=== PATIENT | male | born 1965 ===

== ENCOUNTER 2016-06-07 09:38 | Emergency (ER) | payer BC ==
--- NOTE | 2016-06-07 10:37 | UC ---
Throat Pain/Nasal Azam HPI - HPI Summary HPI Summary: FIVE DAYS OF PRODUCTIVE COUGH, CHILLS, RUNNY NOSE. NO KNOWN FEVER. SORE THROAT FROM COUGHING. - History of Current Complaint Chief Complaint: UCRespiratory Stated Complaint: COUGH Time Seen by Provider: 06/07/16 10:04 Hx Obtained From: Patient, Family/Restoration Ecologist Onset/Duration: Gradual Onset, Lasting Weeks, Still Present Severity: Moderate Cough: Productive Associated Signs & Symptoms: Positive: Hoarseness, Nasal Discharge - Epiglottits Risk Factors Epiglottis Risk Factors: Negative - Allergies/Home Medications Allergies/Adverse Reactions: Allergies Allergy/AdvReac Type Severity Reaction Status Date / Time No Known Allergies Allergy Verified 06/07/16 09:58 Home Medications: Home Medications [id number] W/ APAP [Delsym Cough + Cold D... 0-23-720-325 mg/10Ml] [History Confirmed 06/07/16] [id number] W/ APAP [Tylenol Cold & Flu Severe 8-82-148-325 mg] [History] PMH/Surg Hx/FS Hx/Imm Hx Previously Healthy: Yes Endocrine History Of: Denies: Diabetes, Thyroid Disease Cardiovascular History Of: Denies: Cardiac Disorders, Hypertension Respiratory History Of: Denies: COPD, Asthma GI/ History Of: Denies: Ulcer - Surgical History Surgical History: Yes Surgery Procedure, Year, and Place: knee surgery - Family History Known Family History: Negative: Respiratory Disease - Social History Occupation: Employed Full-time Lives: With Family Alcohol Use: Occasionally Substance Use Type: None Smoking Status (MU): Never Smoked Tobacco Household Exposure Type: Cigarettes Cessation Counseling: Patient Advised to Stop Review of Systems Constitutional: Chills, Fatigue Skin: Negative Eyes: Negative ENT: Sore Throat, Nasal Discharge Respiratory: Cough Cardiovascular: Negative Gastrointestinal: Negative Genitourinary: Negative Motor: Negative Neurovascular: Negative Musculoskeletal: Negative Neurological: Negative Psychological: Negative All Other Systems Reviewed And Are Negative: Yes Physical Exam Triage Information Reviewed: Yes Appearance: Well-Appearing, No Pain Distress, Well-Nourished Vital Signs: Initial Vital Signs Temp 98.3 F 06/07/16 09:50 Pulse 73 06/07/16 09:50 Resp 16 06/07/16 09:50 BP 117/76 06/07/16 09:50 Pulse Ox 98 06/07/16 09:50 Vital Signs Reviewed: Yes Eye Exam: Normal ENT: Positive: Hearing grossly normal, Nasal congestion, Nasal drainage, TM bulging, TM dull Dental Exam: Normal Neck exam: Normal Neck: Positive: Supple, Nontender, No Lymphadenopathy Respiratory Exam: Other - COUGH Respiratory: Positive: Chest non-tender, Lungs clear, Normal breath sounds, No respiratory distress, No accessory muscle use Cardiovascular Exam: Normal Cardiovascular: Positive: RRR, No Murmur, Pulses Normal Abdominal Exam: Normal Abdomen Description: Positive: Nontender, No Organomegaly Musculoskeletal Exam: Normal Musculoskeletal: Positive: Strength Intact, ROM Intact Neurological Exam: Normal Psychological Exam: Normal Psychological: Positive: Normal Response To Family Skin Exam: Normal Throat Pain/Nasal Course/Dx - Differential Dx/Diagnosis Differential Diagnosis/HQI/PQRI: Otitis Media, Pharyngitis, Sinusitis, URI Provider Diagnoses: SINUSITIS. BRONCHITIS Discharge - Discharge Plan Condition: Stable Disposition: HOME Prescriptions: Benzonatate CAP* [Tessalon 100 MG CAP*] 100 mg PO TID #15 cap DOXYcycline CAP(*) [DOXYcycline 100MG CAP(*)] 100 mg PO BID #20 cap Patient Education Materials: Sinusitis (ED), Acute Bronchitis (ED) Forms: *Work Release Referrals: Griffin Sanchez MD [Primary Care Provider] -
== END 2016-06-07 10:30 | disposition home or self-care (01) ==
LOC: UCEAST 09:38
DX: J32.9 Chronic sinusitis, unspecified (principal); J40 Bronchitis, not specified as acute or chronic
CPT/HCPCS: 99202; G0463